=== PATIENT | female | born 1970 | race Caucasian/White ===

== ENCOUNTER 2021-02-10 06:57 | Outpatient (CLI) | payer OTHER, SELFPAY ==
[2021-02-10 07:45] LABS: Basophils Absolute Auto 0.1 K/mm3 (0.0-0.1); Eosinophils Absolute Auto 0.2 K/mm3 (0-0.3); Eosinophils Percent Auto 1.9 % (0-4.4); Hematocrit 45.9 % (37.0-47.0); Hemoglobin 15.1 g/dL (12.0-15.0); Immature Granulocyte Absolute 0.02 K/mm3 (0.00-0.031); Immature Granulocyte Percent A 0.2 % (0-0.5); Lymphocytes Percent Auto 21.8 % (18.3-44.2); Mean Corpuscular HGB Conc 32.9 g/dl (32-36); Mean Corpuscular Hemoglobin 28.9 pg (26-34); Mean Corpuscular Volume 87.9 fl (80-100); Mean Platelet Volume 9.3 fl (7.4-10.4); Monocytes Absolute Auto 0.8 K/mm3 (0.1-0.6); Monocytes Percent Auto 9.2 % (2.6-8.5); Neutrophils Absolute Auto 5.4 K/mm3 (1.3-6.7); Neutrophils Percent Auto 65.9 % (45.5-73.1); Platelet Count Result 495 k/mm3 (150-375); Red Blood Count 5.22 M/mm3 (4.2-5.4); Red Cell Distribution Width 12.8 % (11.5-14.5); White Blood Count 8.3 K/mm3 (4.5-10.0)
[2021-02-10 07:57] LABS: Alanine Aminotransferase 30 U/L (4-35); Albumin Level 4.2 g/dL (3.5-5.1); Alkaline Phosphatase 95 U/L (38-126); Anion Gap 7 mmol/L (8-16); Aspartate Amino Transferase 26 U/L (14-36); Bilirubin,Total 0.7 mg/dL (0.2-1.3); Blood Urea Nitrogen 21 mg/dL (7-17); Calcium 9.6 mg/dL (8.4-10.2); Carbon Dioxide 25 mmol/L (22-30); Chloride 103 mmol/L (98-107); Cholesterol 184 mg/dL (0-200); Estimated Glomerular Filt Rate > 60; Glucose 106 mg/dL (65-110); HDL Direct 64 mg/dL; Potassium 3.7 mmol/L (3.4-5.0); Sodium 135 mmol/L (137-145); Triglycerides 117 mg/dL (<150)
[2021-02-10 08:08] LABS: LDL Cholesterol Direct 90 mg/dL
[2021-02-10 08:16] LABS: Hemoglobin A1C 5.4 % (<5.7)
[2021-02-10 08:28] LABS: Thyroid Stimulating Hormone 0.864 uIU/mL (0.465-4.680)
== END 2021-02-10 06:58 | disposition home or self-care (01) ==
PROVIDERS: PCP Physician Assistant; Visit Provider Physician Assistant
DX: Z13.1 Encounter for screening for diabetes mellitus (principal); R53.83 Other fatigue; I10 Essential (primary) hypertension; R76.8 Other specified abnormal immunological findings in serum
CPT/HCPCS: 36415; 80053; 80061; 83036; 84443; 85025; 86038

== ENCOUNTER 2021-05-17 10:57 | Outpatient (CLI) | payer OTHER, SELFPAY | END 2021-05-17 10:58 | disposition home or self-care (01) | PROVIDERS: PCP Physician Assistant; Visit Provider Internal Medicine Cardiovascular Disease | DX: R00.2 Palpitations (principal) | CPT/HCPCS: 36415; 84443 ==

== ENCOUNTER 2024-01-13 15:16 | Outpatient (CLI) | payer OTHER, SELFPAY ==
--- NOTE | ~2024-01-13 | MR_ITS ---
EXAMINATION: MR shoulder LT wo con DATE: 01/13/2024 16:24 INDICATION: Rotator cuff insufficiency of left shoulder. Left shoulder pain. TECHNIQUE: Magnetic resonance imaging (MRI) of the left shoulder was performed without intravenous co ntrast. Sequences included axial PD-weighted FS FSE, coronal oblique PD-weighted FS FSE and T2-weight ed FS FSE, and sagittal oblique T2-weighted FS FSE and T1-weighted FSE. COMPARISON: Left shoulder MRI 02/05/2013 FINDINGS: Coracoacromial arch: The acromion undersurface is flat in morphology (type I). Subacromial spurring is noted. There is mil d acromioclavicular joint osteoarthritis. There is moderate subacromial/subdeltoid bursitis with loos e bodies measuring up to 14 mm. Rotator cuff: There is an interstitial partial thickness tear of supraspinatus tendon at its distal attachment keith uring 8 mm anterior to posterior by 4 mm proximal to distal by 40% tendon thickness. Infraspinatus an d teres minor tendons are normal. There is mild subscapularis tendinopathy. Biceps tendon and glenoid labrum: Biceps tendon is in bicipital groove. Intra-articular biceps tendon is normal. The glenoid labrum is normal. Fluid: There is a small glenohumeral joint effusion. Bones/cartilage: There is cartilage surface irregularity of glenoid. Humeral head cartilage is normal. IMPRESSION: 1. Partial-thickness tear of supraspinatus tendon. 2. Mild glenoid chondrosis. 3. Moderate subacromial/subdeltoid bursitis with loose bodies. 4. Small glenohumeral joint effusion. 5. Mild acromioclavicular joint osteoarthritis. Reviewed, dictated and finalized at location A.
== END 2024-01-13 15:17 ==
LOC: GOSHIMG 15:17
PROVIDERS: PCP Physician Assistant; Visit Provider Physician Assistant
DX: M75.112 Incomplete rotator cuff tear or rupture of left shoulder, not specified as traumatic (principal); M75.52 Bursitis of left shoulder; M24.012 Loose body in left shoulder; M25.412 Effusion, left shoulder; M19.012 Primary osteoarthritis, left shoulder; M25.312 Other instability, left shoulder; M75.22 Bicipital tendinitis, left shoulder; M25.819 Other specified joint disorders, unspecified shoulder; M89.8X9 Other specified disorders of bone, unspecified site
CPT/HCPCS: 73221